=== PATIENT | female | born 1995 | race Caucasian/White ===

== ENCOUNTER 2022-02-08 17:14 | Emergency (ER) | payer OTHER ==
[2022-02-08 18:34] LABS: RED BLOOD COUNT 4.28 M/UL (4.00-5.10); WHITE BLOOD COUNT 12.6 K/UL (4.5-11.0)
[2022-02-08 19:07] LABS: BUN/CREATININE RATIO 19 (0-10)
[2022-02-08] MEDS ORDERED: OMNICEF 300 MG300 MG PO (20:19)
== END 2022-02-08 21:33 | disposition home or self-care (01) ==
LOC: ER1 17:14
DX: O23.43 Unspecified infection of urinary tract in pregnancy, third trimester (principal); N39.0 Urinary tract infection, site not specified; Z3A.31 31 weeks gestation of pregnancy
CPT/HCPCS: 80053; 81001; 82550; 82553; 84484; 85025; 93005; 99284